=== PATIENT | female | born 1930 | race Caucasian/White ===

== ENCOUNTER → 2017-08-19 | Outpatient (CLI) | payer MEDICARE, BC ==
--- NOTE | 2017-08-20 12:18 | ECHOF ---
Referral Reason:R01.1 Cardiac murmur, unspecified MEASUREMENTS -------- HEIGHT: 127.0 cm WEIGHT: 61.7 kg BP: RVIDd: 2.7 cm (< 3.3) IVSd: 1.1 cm (0.6 - 1.1) LVIDd: 3.8 cm (3.9 - 5.3) LVPWd: 1.3 cm (0.6 - 1.1) EDV(Teich): 61 ml IVSs: 1.5 cm LVIDs: 2.6 cm LVPWs: 1.2 cm ESV(Teich): 24 ml EF(Teich): 61 % %FS: 32 % SV(Teich): 37 ml LA Diam: 3.1 cm (2.7 - 3.8) LALs A4C: 5.2 cm LAAs A4C: 17.6 cm LAESV A-L A4C: 51 ml LAESV MOD A4C: 46 ml LALs A2C: 4.1 cm LAAs A2C: 11.9 cm LAESV A-L A2C: 29 ml LAESV MOD A2C: 29 ml LAESV(A-L): 43 ml LAESV Index (A-L): 31.06 ml/m Ao Diam: 2.9 cm (2.0 - 3.7) AV Cusp: 1.7 cm (1.5 - 2.6) LA Diam: 3.2 cm (2.7 - 3.8) EPSS: 0.4 cm MV E Carlos Alberto: 0.80 m/s MV DecT: 228 ms MV Dec [place]: 3.5 m/s MV A Carlos Alberto: 1.07 m/s MV E/A Ratio: 0.75 E/E': 11.78 E': 0.07 m/s LVOT Vmax: 1.41 m/s LVOT maxP.91 mmHg LVOT Vmax: 1.38 m/s LVOT Vmean: 0.98 m/s LVOT maxP.58 mmHg LVOT meanP.21 mmHg LVOT Env.Ti: 312 ms LVOT VTI: 30.5 cm AV Vmax: 2.22 m/s AV maxP.83 mmHg AV Vmax: 2.19 m/s AV Vmean: 1.50 m/s AV maxP.31 mmHg AV meanP.15 mmHg AV Env.Ti: 272 ms AV VTI: 40.7 cm TR Vmax: 2.75 m/s TR maxP.27 mmHg RAP: 5.00 mmHg RVSP: 35.27 mmHg MV EF SLOPE: 52.33 mm/s (70 - 150) MV EXCURSION: 1.15 cm (> 18.000) FINDINGS -------- Sinus rhythm. This was a technically good study. The left ventricular size is normal. There is mild concentric left ventricular hypertrophy. Overa ll left ventricular systolic function is low-normal with, an EF between 50 - 55 %. The right ventricle is normal in size. The left atrial size is normal. LA is midly dilated 29-33ml/m2. The right atrial size is normal. There is mild aortic stenosis present. Peak/mean gradient across the Aortic Valve is 19.31mmHg / 10 .15mmHg. Mild mitral annular calcification present. Mild mitral regurgitation is present. Moderate tricuspid regurgitation present. There is mild pulmonary hypertension. The right ventric ular systolic pressure, as measured by Doppler, is 35.27mmHg. Trace/mild (physiologic) pulmonic regurgitation. The aortic root size is normal. There is no pericardial effusion. CONCLUSIONS -------- 1. The left ventricular size is normal. 2. There is mild concentric left ventricular hypertrophy. 3. Overall left ventricular systolic function is low-normal with, an EF between 50 - 55 %. 4. The left atrial size is normal. 5. LA is midly dilated 29-33ml/m2. 6. There is mild aortic stenosis present. 7. Peak/mean gradient across the Aortic Valve is 19.31mmHg / 10.15mmHg. 8. Mild mitral annular calcification present. 9. Mild mitral regurgitation is present. 10. Moderate tricuspid regurgitation present. 11. There is mild pulmonary hypertension. 12. The right ventricular systolic pressure, as measured by Doppler, is 35.27mmHg. 13. Trace/mild (physiologic) pulmonic regurgitation. 14. The aortic root size is normal. 15. There is no pericardial effusion. CAN PATCHER: Jenny Banegas RDCS
== END | disposition home or self-care (01) ==
LOC: RADECHMAIN 12:58
PROVIDERS: ATTEND Family Medicine
DX: I51.7 Cardiomegaly (principal)
CPT/HCPCS: 93306

== ENCOUNTER 2018-03-25 11:18 | Observation (INO) | payer MEDICARE, BC ==
[2018-03-25] MEDS ORDERED: ALBUTEROL NEBULIZED 2.5 MG/3 ML INHALATION STA (11:48)
[2018-03-25] MEDS ORDERED: methylPREDNISolone SOD SUCCI 125 MG/2 ML VIAL IV STA (11:48)
[2018-03-25] MEDS ORDERED: SODIUM CHLORIDE 0.9% 500 ML 500 ML IV STA (11:48)
[2018-03-25] MEDS ORDERED: IPRATROPIUM 0.5 MG/2.5 ML NEBU INHALATION STA (11:48)
--- NOTE | 2018-03-25 12:02 | ED ---
General Adult HPI - General Chief complaint: Shortness of Breath Stated complaint: Sent for breathing evaluation Time Seen by Provider: 03/25/18 11:20 Source: patient, RN notes reviewed Mode of arrival: ambulatory Limitations: no limitations - History of Present Illness Initial comments: This is an 88-year-old female who presents to the emergency department complaining of difficulty breathing. Patient states his been intermittent for months. 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 Patient states she's also coughing up some sputum. Patient denies any fever chills. Patient states she has been on steroids lately and is so she stopped taking steroids the symptoms worsened. Patient states her shortness of breath does appear to get worse with exertion but particularly worse at night. Patient denies any chest pain or palpitations. Patient denies any abdominal pain. Patient denies nausea vomiting or diarrhea. Patient denies any injury or trauma - Related Data Home Medications Medication Instructions Recorded Confirmed Albuterol Inhaler [Ventolin Hfa 1 - 2 puff INHALATION RT-Q6H PRN 03/25/18 Inhaler] Aspirin EC [Ecotrin Low Dose] 81 mg PO DAILY 03/25/18 03/25/18 Levothyroxine Sodium [Synthroid] 25 mcg PO MOTUWETHFRSA 03/25/18 03/25/18 Levothyroxine Sodium [Synthroid] 37.5 mcg PO RICHEY 03/25/18 03/25/18 Montelukast [Singulair] 10 mg PO HS 03/25/18 03/25/18 amLODIPine [Norvasc] 5 mg PO HS 03/25/18 03/25/18 Allergies Allergy/AdvReac Type Severity Reaction Status Date / Time tetracycline Allergy Unknown Verified 03/25/18 11:39 Review of Systems ROS Statement: Those systems with pertinent positive or pertinent negative responses have been documented in the HPI. ROS Other: All systems not noted in ROS Statement are negative. Past Medical History Past Medical History: Asthma History of Any Multi-Drug Resistant Organisms: None Reported Additional Past Surgical History / Comment(s): ovary and tube removed, right knee Past Psychological History: No Psychological Hx Reported Smoking Status: Never smoker Past Alcohol Use History: None Reported Past Drug Use History: None Reported General Exam - General Exam Comments Initial Comments: GENERAL: Patient is well-developed and well-nourished. Patient is nontoxic and well- hydrated and is in mild distress. ENT: Neck is soft and supple. No significant lymphadenopathy is noted. Oropharynx is clear. Moist mucous membranes. Neck has full range of motion without eliciting any pain. EYES: The sclera were anicteric and conjunctiva were pink and moist. Extraocular movements were intact and pupils were equal round and reactive to light. Eyelids were unremarkable. PULMONARY: Celina wheezing diffusely CARDIOVASCULAR: There is a regular rate and rhythm without any murmurs gallops or rubs. ABDOMEN: Soft and nontender with normal bowel sounds. No palpable organomegaly was noted. There is no palpable pulsatile mass. SKIN: Skin is clear with no lesions or rashes and otherwise unremarkable. NEUROLOGIC: Patient is alert and oriented x3. Cranial nerves II through XII are grossly intact. Motor and sensory are also intact. Normal speech, volume and content. Symmetrical smile. MUSCULOSKELETAL: Normal extremities with adequate strength and full range of motion. No lower extremity swelling or edema. No calf tenderness. LYMPHATICS: No significant lymphadenopathy is noted PSYCHIATRIC: Normal psychiatric evaluation. Limitations: no limitations Course Vital Signs 03/25/18 03/25/18 03/25/18 11:20 12:07 12:24 Temperature 98.3 F Pulse Rate 94 96 108 H Respiratory 18 Rate Blood Pressure 174/82 O2 Sat by Pulse 100 Oximetry 03/25/18 13:52 Temperature Pulse Rate 98 Respiratory 18 Rate Blood Pressure 177/85 O2 Sat by Pulse 97 Oximetry Medical Decision Making - Medical Decision Making EKG shows normal sinus rhythm at 95 bpm NH interval is 176 dresses 118 QT interval 382 QTC is 480. Patient's EKG shows a right bundle branch block there is no ST segment elevation or depression. Patient's d-dimer was mildly elevated I CAT scan the patient's chest did not show any PE and it showed no infiltrate. I went back and listened to the patient she was wheezing diffusely and stated she did not feel any better than she did previously. I spoke with [facility] hospitalist and they agreed to admit the patient admitted the patient I wrote admitting orders I continued steroids and albuterol treatments [id number]. - Lab Data Result diagrams: 03/25/18 12:05 03/25/18 12:05 Lab Results 11/01/18 11/01/18 11/01/18 Range/Units 12:05 12:05 12:05 WBC 5.8 (3.8-10.6) k/uL RBC 4.38 (3.80-5.40) m/uL Hgb 13.0 (11.4-16.0) gm/dL Hct 41.2 (34.0-46.0) % MCV 93.9 (80.0-100.0) fL MCH 29.6 (25.0-35.0) pg MCHC 31.5 (31.0-37.0) g/dL RDW 14.3 (11.5-15.5) % Plt Count 327 (150-450) k/uL Neutrophils % 57 % Lymphocytes % 23 % Monocytes % 4 % Eosinophils % 11 % Basophils % 0 % Neutrophils # 3.3 (1.3-7.7) k/uL Lymphocytes # 1.4 (1.0-4.8) k/uL Monocytes # 0.2 (0-1.0) k/uL Eosinophils # 0.7 (0-0.7) k/uL Basophils # 0.0 (0-0.2) k/uL PT (9.0-12.0) sec INR (<1.2) APTT (22.0-30.0) sec D-Dimer (<0.60) mg/L FEU Sodium 141 (137-145) mmol/L Potassium 4.2 (3.5-5.1) mmol/L Chloride 109 H (98-107) mmol/L Carbon Dioxide 23 (22-30) mmol/L Anion Gap 9 mmol/L BUN 13 (7-17) mg/dL Creatinine 0.67 (0.52-1.04) mg/dL Est GFR (CKD-EPI)AfAm >90 (>60 ml/min/1.73 sqM) Est GFR (CKD-EPI)NonAf 78 (>60 ml/min/1.73 sqM) Glucose 107 H (74-99) mg/dL Calcium 9.4 (8.4-10.2) mg/dL Magnesium 2.1 (1.6-2.3) mg/dL Total Bilirubin 0.4 (0.2-1.3) mg/dL AST 26 (14-36) U/L ALT 24 (9-52) U/L Alkaline Phosphatase 71 (38-126) U/L Total Creatine Kinase 49 (30-135) U/L CK-MB (CK-2) 1.0 (0.0-2.4) ng/mL CK-MB (CK-2) Rel Index 2.0 Troponin I <0.012 (0.000-0.034) ng/mL NT-Pro-B Natriuret Pep pg/mL Total Protein 7.0 (6.3-8.2) g/dL Albumin 4.1 (3.5-5.0) g/dL 03/25/18 03/25/18 Range/Units 12:05 12:05 WBC (3.8-10.6) k/uL RBC (3.80-5.40) m/uL Hgb (11.4-16.0) gm/dL Hct (34.0-46.0) % MCV (80.0-100.0) fL MCH (25.0-35.0) pg MCHC (31.0-37.0) g/dL RDW (11.5-15.5) % Plt Count (150-450) k/uL Neutrophils % % Lymphocytes % % Monocytes % % Eosinophils % % Basophils % % Neutrophils # (1.3-7.7) k/uL Lymphocytes # (1.0-4.8) k/uL Monocytes # (0-1.0) k/uL Eosinophils # (0-0.7) k/uL Basophils # (0-0.2) k/uL PT 9.4 (9.0-12.0) sec INR 0.9 (<1.2) APTT 21.1 L (22.0-30.0) sec D-Dimer 0.75 H (<0.60) mg/L FEU Sodium (137-145) mmol/L Potassium (3.5-5.1) mmol/L Chloride (98-107) mmol/L Carbon Dioxide (22-30) mmol/L Anion Gap mmol/L BUN (7-17) mg/dL Creatinine (0.52-1.04) mg/dL Est GFR (CKD-EPI)AfAm (>60 ml/min/1.73 sqM) Est GFR (CKD-EPI)NonAf (>60 ml/min/1.73 sqM) Glucose (74-99) mg/dL Calcium (8.4-10.2) mg/dL Magnesium (1.6-2.3) mg/dL Total Bilirubin (0.2-1.3) mg/dL AST (14-36) U/L ALT (9-52) U/L Alkaline Phosphatase (38-126) U/L Total Creatine Kinase (30-135) U/L CK-MB (CK-2) (0.0-2.4) ng/mL CK-MB (CK-2) Rel Index Troponin I (0.000-0.034) ng/mL NT-Pro-B Natriuret Pep 227 pg/mL Total Protein (6.3-8.2) g/dL Albumin (3.5-5.0) g/dL Disposition Clinical Impression: Asthma with status asthmaticus Referrals: Kwabena Pedraza DO [Primary Care Provider] - 1-2 days Time of Disposition: 15:17
[2018-03-25 12:41] LABS: Basophils % (A) 0 %; Eosinophils # (A) 0.7 k/uL (0-0.7); Eosinophils % (A) 11 %; HCT 41.2 % (34.0-46.0); Lymphocytes # (A) 1.4 k/uL (1.0-4.8); Lymphocytes % (A) 23 %; MCH 29.6 pg (25.0-35.0); MCHC 31.5 g/dL (31.0-37.0); MCV 93.9 fL (80.0-100.0); Mean Platelet Volume 6.8; Monocytes # (A) 0.2 k/uL (0-1.0); Monocytes % (A) 4 %; Neutrophils # (A) 3.3 k/uL (1.3-7.7); Neutrophils % (A) 57 %; Platelet Count 327 k/uL (150-450); RBC 4.38 m/uL (3.80-5.40); RDW 14.3 % (11.5-15.5); WBC 5.8 k/uL (3.8-10.6)
[2018-03-25 12:49] LABS: ALT 24 U/L (9-52); AST 26 U/L (14-36); Albumin 4.1 g/dL (3.5-5.0); Alkaline Phosphatase 71 U/L (38-126); Anion Gap 9 mmol/L; Blood Urea Nitrogen 13 mg/dL (7-17); Calcium 9.4 mg/dL (8.4-10.2); Carbon Dioxide 23 mmol/L (22-30); Chloride 109 mmol/L (98-107); Glucose 107 mg/dL (74-99); Magnesium 2.1 mg/dL (1.6-2.3); Potassium 4.2 mmol/L (3.5-5.1); Sodium 141 mmol/L (137-145); Total Bilirubin 0.4 mg/dL (0.2-1.3)
[2018-03-25 13:09] LABS: Creatine Kinase 49 U/L (30-135); INR 0.9 (<1.2); Prothrombin Time 9.4 sec (9.0-12.0)
[2018-03-25 13:13] LABS: D-Dimer 0.75 mg/L FEU (<0.60); Partial Thromboplastin Time 21.1 sec (22.0-30.0)
--- NOTE | 2018-03-25 13:20 | XR ---
EXAMINATION TYPE: XR chest 2V DATE OF EXAM: 03/25/2018 COMPARISON: NONE TECHNIQUE: PA and lateral views submitted. HISTORY: Difficulty in breathing FINDINGS: Left basilar atelectasis or infiltrate. There is prominence the right paratracheal stripe. Hyperinfla tion suggests COPD. Apical pleural thickening. No overt failure. Hypertrophic and degenerative change of the spine. IMPRESSION: 1. Left basilar atelectasis or infiltrate. There is increased density along the right paratracheal st ripe for which CT of the chest is recommended.
[2018-03-25 13:22] LABS: Troponin I <0.012 ng/mL (0.000-0.034)
--- NOTE | 2018-03-25 15:09 | CT ---
CT CHEST FOR PULMONARY EMBOLISM. EXAMINATION TYPE: CT chest angio for PE DATE OF EXAM: 03/25/2018 INDICATION: Shortness of breath and wheezing for [address] DLP: 205.5 mGycm, Automated exposure control for dose reduction was used. CONTRAST: Patient injected with 100 mL of Isovue 370. COMPARISON: None TECHNIQUE: CT of the chest is performed on a spiral scan at 2 mm thick sections. Study is performed with intravenous contrast timed for evaluation for pulmonary embolism. This will limit additional po rtions of the evaluation. 3-D MIP images reconstructed by the technologist are reviewed on the compu ter in the coronal and sagittal planes. FINDINGS: No persistent filling defects are evident to suggest an acute pulmonary embolism. No mediastinal or hilar adenopathy enlarged by CT criteria is evident. The ascending aorta diameter at the level of the main pulmonary artery is 3.4 cm. The main pulmonary artery diameter at the bifur cation is 2.3 cm. Lung windows are clear. There is a 4.3 cm cyst on the superior medial right kidney. IMPRESSIONS: 1. No acute pulmonary embolism.
[2018-03-25] MEDS ORDERED: IPRATROPIUM-ALBUTEROL 3 ML NEB INHALATION STA (15:18)
[2018-03-25] MEDS: IPRATROPIUM-ALBUTEROL 3 ML NEB INHALATION PRN (20:54)
--- NOTE | 2018-03-25 21:23 | P.HPIM ---
History of Present Illness This is a pleasant 88 years old female with past medical history of asthma, hypertension and hypothyroidism. Presents because of dyspnea suspicious for acute asthma attack, pt has h/o asthma since age of 30s, she gets asthma attacks about once a year and that she is allergic to elm tree and dust mites. pt usually goes to her pcp who prescribed her prednisone for few days where she will get better. how ever this is the third attack in 2-3 months, the first attack she thinks was on november , followed by a second one in December, she just finished her prednisone taper about 2 weeks ago, then one week ago she start to develop dyspnea again. Her dyspnea is associated with cough and white/clear phlegm. however there is no chest pain, no abdominal pain . no recent h/o common cold . In the emergency room patient was afebrile but tachycardic and hypertensive. Oxygen saturation 97% on 2 L oxygen via NC. No leukocytosis and aggressive CBC and BMP were unremarkable. CTPA was done for elevated d-dimer showing no pulmonary embolism, no mediastinal lymphadenopathy. And 4.3 cm on the right kidney. Chest x-ray showing left basilar atelectasis or infiltrate Review of Systems CONSTITUTIONAL: No fever, no malaise, no fatigue. HEENT: No recent visual problems or hearing problems. Denied any sore throat. CARDIOVASCULAR: No orthopnea, PND, no palpitations, no syncope. PULMONARY: No shortness of breath, no cough, no hemoptysis. GASTROINTESTINAL: No diarrhea, no nausea, no vomiting, no abdominal pain. Normoactive bowel sounds. NEUROLOGICAL: No headaches, no weakness, no numbness. HEMATOLOGICAL: Denies any bleeding or petechiae. GENITOURINARY: Denies any burning micturition, frequency, or urgency. MUSCULOSKELETAL/RHEUMATOLOGICAL: Denies any joint pain, swelling, or any muscle pain. ENDOCRINE: Denies any polyuria or polydipsia. Past Medical History Past Medical History: Asthma History of Any Multi-Drug Resistant Organisms: None Reported Additional Past Surgical History / Comment(s): ovary and tube removed, right knee Past Psychological History: No Psychological Hx Reported Smoking Status: Never smoker Past Alcohol Use History: None Reported Past Drug Use History: None Reported Medications and Allergies Home Medications Medication Instructions Recorded Confirmed Type Albuterol Inhaler [Ventolin Hfa 1 - 2 puff INHALATION RT-Q6H PRN 03/25/18 History Inhaler] Aspirin EC [Ecotrin Low Dose] 81 mg PO DAILY 03/25/18 03/25/18 History Levothyroxine Sodium [Synthroid] 25 mcg PO MOTUWETHFRSA 03/25/18 03/25/18 History Levothyroxine Sodium [Synthroid] 37.5 mcg PO RICHEY 03/25/18 03/25/18 History Montelukast [Singulair] 10 mg PO HS 03/25/18 03/25/18 History amLODIPine [Norvasc] 5 mg PO HS 03/25/18 03/25/18 History Allergies Allergy/AdvReac Type Severity Reaction Status Date / Time tetracycline Allergy Unknown Verified 03/25/18 11:39 Physical Exam Vitals: Vital Signs Temp Pulse Resp BP Pulse Ox 03/25/18 15:49 106 H 03/25/18 15:41 106 H 03/25/18 13:52 98 18 177/85 97 03/25/18 12:24 108 H 03/25/18 12:07 96 03/25/18 11:20 98.3 F 94 18 174/82 100 Intake and Output 03/25/18 03/25/18 03/25/18 06:59 14:59 22:59 Other: Weight 62.142 kg GENERAL: The patient is alert and oriented x3, not in any acute distress. Well developed, well nourished. HEENT: Pupils are round and equally reacting to light. EOMI. No scleral icterus. No conjunctival pallor. Normocephalic, atraumatic. No pharyngeal erythema. No thyromegaly. CARDIOVASCULAR: S1 and S2 present. No murmurs, rubs, or gallops. PULMONARY: Chest is clear to auscultation, no crackles. bilateral wheezing and extended expiratory phase. ABDOMEN: Soft, nontender, nondistended, normoactive bowel sounds. No palpable organomegaly. MUSCULOSKELETAL: No joint swelling or deformity. EXTREMITIES: No cyanosis, clubbing, or pedal edema. NEUROLOGICAL: Gross neurological examination did not reveal any focal deficits. SKIN: No rashes. Results CBC & Chem 7: 03/25/18 12:05 03/25/18 12:05 Labs: Abnormal Lab Results - Last 24 Hours (Table) 11/01/18 11/01/18 Range/Units 12:05 12:05 APTT 21.1 L (22.0-30.0) sec D-Dimer 0.75 H (<0.60) mg/L FEU Chloride 109 H (98-107) mmol/L Glucose 107 H (74-99) mg/dL Assessment and Plan Assessment: Acute asthma exacerbation Essential hypertension Hypothyroidism right renal cyst Plan: This is a pleasant 88 years old female who presents because of asthma. We'll continue with a breathing treatment, steroids and oxygen. we will call pulmonary consult. Labs and medication were resumed. Continue same treatment. Continue with symptomatic treatment. Resume home medication. Monitor lytes and vitals. DVT and GI prophylaxis. Further recommendationsof the clinical course of the patient DVT prophylaxis: Subcutaneous heparin GI Prophylaxis: Pepcid PT/OT: Pending Prognosis is guarded
[2018-03-25 22:47] VITALS: BMI 28.3
[2018-03-25] MEDS: methylPREDNISolone SOD SUCCI 125 MG/2 ML VIAL IV SCH ×3 (23:07→23:34)
[2018-03-25] MEDS: HEPARIN SODIUM,PORCINE 5,000 UNIT/ML 1 ML VIAL SQ SCH (23:07)
[2018-03-25] MEDS: FAMOTIDINE 20 MG/2 ML VIAL IV SCH (23:07)
[2018-03-26] MEDS: amLODIPine 5 MG TAB PO SCH ×2 (00:29→19:56)
[2018-03-26] MEDS: MONTELUKAST 10 MG TAB PO SCH ×2 (00:29→19:56)
[2018-03-26] MEDS: IPRATROPIUM-ALBUTEROL 3 ML NEB INHALATION PRN ×2 (03:12→07:38)
[2018-03-26] MEDS: methylPREDNISolone SOD SUCCI 125 MG/2 ML VIAL IV SCH ×3 (06:16→17:40)
[2018-03-26] MEDS: LEVOTHYROXINE 25 MCG TAB PO SCH (06:17)
[2018-03-26 07:44] LABS: Glucose,Whole Blood 152 mg/dL (75-99)
[2018-03-26] MEDS: INSULIN ASPART 100 UNIT/ML 1 ML 10 ML VIAL SQ SCH ×4 (08:46→21:07)
[2018-03-26] MEDS: HEPARIN SODIUM,PORCINE 5,000 UNIT/ML 1 ML VIAL SQ SCH ×2 (08:47→19:56)
[2018-03-26] MEDS: ASPIRIN 81 MG PO SCH (08:48)
[2018-03-26] MEDS: FAMOTIDINE 20 MG/2 ML VIAL IV SCH (08:48)
[2018-03-26] MEDS: IPRATROPIUM-ALBUTEROL 3 ML NEB INHALATION SCH ×3 (11:27→19:28)
[2018-03-26 12:28] LABS: Glucose,Whole Blood 141 mg/dL (75-99)
--- NOTE | 2018-03-26 13:40 | P.CNPUL ---
History of Present Illness Consult date: 03/26/18 Requesting physician: Jose Diego Reason for consult: dyspnea, cough Chief complaint: Cough, chest congestion, wheezing, shortness of breath History of present illness: This is a 88-year-old patient of Dr. Dash, also follows with retirement specialist from [facility] Dr. Ke Trimble for her history of chronic bronchial asthma, who presented for evaluation of difficulty breathing, persistent cough, chest congestion, wheezing to the emergency department on 05/2017. Patient states she has had recurrent exacerbations of her bronchial asthma since November of this year, for which she required treatment with steroids. She states she used to be on a maintenance inhaler for her asthma, does not remember the name, she developed voice hoarseness, and in July 2017 her retirement specialist discontinued the inhaler and her voice quality recovered. Her only inhaler at this time is Ventolin which she has been using every 4 hours for persistent wheezing. She is on Singulair. She had a an exacerbation of her asthma in December, in January, and February, recently completed a course of prednisone taper 2 weeks ago, and her symptoms worsened. She is having nighttime symptoms every night for the past 2-3 weeks. She states in the past he had some ALLERGY testing by Dr. Worrell, and she was found to be ALLERGIC to trees, and dust mites. Lifetime nonsmoker. She is not exactly sure of her asthma triggers. Other medical history includes hypertension, heart murmur, hypothyroidism. Patient resides in [facility], and she would like to get established with a retirement specialist closer to her place of residence. She denied any fever or chills, her cough is productive with thick white sputum. No hemoptysis, no chest wall tenderness. Not on oxygen at baseline. She is not sure of her baseline pulmonary function. She was never hospitalized or intubated for her asthma. Chest x-ray was completed and showed left basilar atelectasis, and hyperinflation. Lab work was negative for any leukocytosis, d-dimer was mildly elevated at 0.75, electrolytes and renal profile were unremarkable, LFTs were within normal limits , troponin was negative 1, proBNP was within normal limits at 227, influenza screen was negative. CT angios of the chest was completed and showed no evidence of pulmonary embolism, no mediastinal or hilar adenopathy, clear lung windows. EKG showed normal sinus rhythm with a right bundle branch block pattern. Patient was started on nebulized bronchodilators, IV steroids, she is feeling better today, we are seeing this patient in consultation for exacerbation of severe persistent bronchial asthma Review of Systems All systems: negative Constitutional: Denies chills, Denies fever Eyes: denies blurred vision, denies pain Ears, nose, mouth and throat: Denies headache, Denies sore throat Cardiovascular: Denies chest pain, Denies shortness of breath Respiratory: Reports congestion, Reports cough with sputum, Reports dyspnea, Reports wheezing, Denies cough Gastrointestinal: Denies abdominal pain, Denies diarrhea, Denies nausea, Denies vomiting Genitourinary: Denies dysuria, Denies hematuria Musculoskeletal: Denies myalgias Integumentary: Denies pruritus, Denies rash Neurological: Denies numbness, Denies weakness Psychiatric: Denies anxiety, Denies depression Endocrine: Denies fatigue, Denies weight change Past Medical History Past Medical History: Asthma History of Any Multi-Drug Resistant Organisms: None Reported Additional Past Surgical History / Comment(s): ovary and tube removed, right knee Past Psychological History: No Psychological Hx Reported Smoking Status: Never smoker Past Alcohol Use History: None Reported Past Drug Use History: None Reported Medications and Allergies Home Medications Medication Instructions Recorded Confirmed Type Albuterol Inhaler [Ventolin Hfa 1 - 2 puff INHALATION RT-Q6H PRN 03/25/18 History Inhaler] Aspirin EC [Ecotrin Low Dose] 81 mg PO DAILY 03/25/18 03/25/18 History Levothyroxine Sodium [Synthroid] 25 mcg PO MOTUWETHFRSA 03/25/18 03/25/18 History Levothyroxine Sodium [Synthroid] 37.5 mcg PO RICHEY 03/25/18 03/25/18 History Montelukast [Singulair] 10 mg PO HS 03/25/18 03/25/18 History amLODIPine [Norvasc] 5 mg PO HS 03/25/18 03/25/18 History Allergies Allergy/AdvReac Type Severity Reaction Status Date / Time tetracycline Allergy Unknown Verified 03/25/18 11:39 Physical Exam Vitals: Vital Signs Temp Pulse Pulse Resp BP BP Pulse Ox 03/26/18 11:37 102 H 03/26/18 11:27 104 H 03/26/18 08:00 17 03/26/18 07:55 102 H 03/26/18 07:40 96 03/26/18 06:01 98.1 F 98 17 148/80 93 L 03/26/18 03:23 100 03/26/18 03:13 104 H 03/26/18 00:19 105 H 134/71 03/25/18 22:59 98.1 F 121 H 18 152/80 94 L 03/25/18 22:01 98.2 F 96 18 137/87 98 03/25/18 21:17 98.5 F 108 H 20 139/70 95 03/25/18 21:07 100 03/25/18 20:54 100 03/25/18 17:00 98.2 F 100 18 136/78 98 03/25/18 15:49 106 H 03/25/18 15:41 106 H 03/25/18 13:52 98 18 177/85 97 Intake and Output 03/25/18 03/26/18 03/26/18 22:59 06:59 14:59 Other: Voiding Method Toilet # Voids 1 1 Weight 61.5 kg GENERAL EXAM: Alert, pleasant, 88-year-old comfortable in no apparent distress. HEAD: Normocephalic/atraumatic. EYES: Normal reaction of pupils, equal size. Conjunctiva pink, sclera white. NOSE: Clear with pink turbinates. THROAT: No erythema or exudates. NECK: No masses, no JVD, no thyroid enlargement, no adenopathy. CHEST: No chest wall deformity. Symmetrical expansion. LUNGS: Equal air entry diffuse wheezes, and prolongation of the expiratory phase CVS: Regular rate and rhythm, normal S1 and S2, no gallops, no rubs, there is soft systolic murmur at the left midclavicular line ABDOMEN: Soft, nontender. No hepatosplenomegaly, normal bowel sounds, no guarding or rigidity. EXTREMITIES: No clubbing, no edema, no cyanosis, 2+ pulses and upper and lower extremities. MUSCULOSKELETAL: Muscle strength and tone normal. SPINE: No scoliosis or deformity SKIN: No rashes CENTRAL NERVOUS SYSTEM: Alert and oriented -3. No focal deficits, tone is normal in all 4 extremities. PSYCHIATRIC: Alert and oriented -3. Appropriate affect. Intact judgment and insight. Results - Laboratory Findings CBC and BMP: 03/25/18 12:05 03/25/18 12:05 PT/INR, D-dimer PT 9.4 sec (9.0-12.0) 03/25/18 12:05 INR 0.9 (<1.2) 03/25/18 12:05 D-Dimer 0.75 mg/L FEU (<0.60) H 03/25/18 12:05 Abnormal lab findings: Abnormal Labs 03/25/18 03/25/18 03/26/18 12:05 12:05 07:42 APTT 21.1 L D-Dimer 0.75 H Chloride 109 H Glucose 107 H POC Glucose (mg/dL) 152 H 03/26/18 12:16 APTT D-Dimer Chloride Glucose POC Glucose (mg/dL) 141 H - Diagnostic Findings Chest x-ray: report reviewed, image reviewed CT scan - chest: report reviewed, image reviewed Additional studies: EKG reviewed Assessment and Plan Plan: Assessment: #1. Acute exacerbation of severe persistent bronchial asthma, patient has had recurrent exacerbations in November, December, January and February #2. Mildly elevated d-dimer, CT angios the chest was negative for any evidence of pulmonary embolism and no evidence of acute pulmonary process #3. Essential hypertension #4. Hypothyroidism #5. Heart murmur #6. Lifetime nonsmoker Plan: We'll continue the IV steroids, Singulair, nebulized bronchodilators, will add Pulmicort and Perforomist, continue GI and DVT prophylaxis. Chest x-ray, CT angiogram of the chest was reviewed with Dr. Alvarez, there is no evidence of pulmonary embolism, no evidence of acute pulmonary process. We'll continue to follow. I performed a history & physical examination of the patient and discussed their management with my nurse practitioner, Sharee Rivas. I reviewed the nurse practitioner's note and agree with the documented findings and plan of care. Lung sounds are positive for diffuse wheezes throughout the lung dhillon. The findings and the impression was discussed with the patient. I attest to the documentation by the nurse practitioner.
[2018-03-26 15:39] LABS: Hemoglobin A1C 5.7 % (4.0-6.0)
[2018-03-26 17:25] LABS: Glucose,Whole Blood 159 mg/dL (75-99)
--- NOTE | 2018-03-26 18:24 | P.PN ---
Subjective Progress Note Date: 03/26/18 Progress note being dictated for Dr. Jensen. Interval history:This is a pleasant 88 years old female with past medical history of asthma, hypertension and hypothyroidism. Presents because of dyspnea suspicious for acute asthma attack, pt has h/o asthma since age of 30s, she gets asthma attacks about once a year and that she is allergic to elm tree and dust mites. pt usually goes to her pcp who prescribed her prednisone for few days where she will get better. how ever this is the third attack in 2-3 months, the first attack she thinks was on november , followed by a second one in December, she just finished her prednisone taper about 2 weeks ago, then one week ago she start to develop dyspnea again. Her dyspnea is associated with cough and white/clear phlegm. however there is no chest pain, no abdominal pain . no recent h/o common cold . In the emergency room patient was afebrile but tachycardic and hypertensive. Oxygen saturation 97% on 2 L oxygen via NC. No leukocytosis and aggressive CBC and BMP were unremarkable. CTPA was done for elevated d-dimer showing no pulmonary embolism, no mediastinal lymphadenopathy. And 4.3 cm on the right kidney. Chest x-ray showing left basilar atelectasis or infiltrate Review of Systems CONSTITUTIONAL: No fever, no malaise, no fatigue. HEENT: No recent visual problems or hearing problems. Denied any sore throat. CARDIOVASCULAR: No orthopnea, PND, no palpitations, no syncope. PULMONARY: No shortness of breath, no cough, no hemoptysis. GASTROINTESTINAL: No diarrhea, no nausea, no vomiting, no abdominal pain. Normoactive bowel sounds. NEUROLOGICAL: No headaches, no weakness, no numbness. HEMATOLOGICAL: Denies any bleeding or petechiae. GENITOURINARY: Denies any burning micturition, frequency, or urgency. MUSCULOSKELETAL/RHEUMATOLOGICAL: Denies any joint pain, swelling, or any muscle pain. ENDOCRINE: Denies any polyuria or polydipsia. 03/26/18 evaluated by pulmonary. Maintained on nebulized bronchodilators, IV steroids, with breathing slowly improved. Reports nonproductive cough. Blood sugars controlled. Denies chest pain, palpitations. Good diet intake, no nausea , no vomiting. Afebrile, mildly tachycardic. Objective - Vital Signs Vital signs: Vital Signs Temp 98.3 F 03/26/18 15:00 Pulse 93 03/26/18 15:52 Resp 22 03/26/18 16:00 BP 167/83 03/26/18 15:00 Pulse Ox 93 L 03/26/18 15:00 Intake & Output 03/25/18 03/26/18 03/26/18 18:59 06:59 18:59 Weight 62.142 kg 61.5 kg Other: Voiding Method Toilet # Voids 1 2 - Exam GENERAL: The patient is alert and oriented x3, not in any acute distress. Well developed, well nourished. HEENT: Pupils are round and equally reacting to light. EOMI. No scleral icterus. No conjunctival pallor. Normocephalic, atraumatic. No pharyngeal erythema. No thyromegaly. CARDIOVASCULAR: S1 and S2 present. No murmurs, rubs, or gallops. Mild tachycardia PULMONARY: Chest is clear to auscultation, no crackles. bilateral wheezing and extended expiratory phase. ABDOMEN: Soft, nontender, nondistended, normoactive bowel sounds. No palpable organomegaly. MUSCULOSKELETAL: No joint swelling or deformity. EXTREMITIES: No cyanosis, clubbing, or pedal edema. NEUROLOGICAL: Gross neurological examination did not reveal any focal deficits. SKIN: No rashes. - Labs CBC & Chem 7: 03/25/18 12:05 03/25/18 12:05 Labs: Abnormal Lab Results - Last 24 Hours (Table) 03/26/18 03/26/18 03/26/18 Range/Units 07:42 12:16 17:23 POC Glucose (mg/dL) 152 H 141 H 159 H (75-99) mg/dL Microbiology - Last 24 Hours (Table) 03/25/18 12:05 Blood Culture - Preliminary Blood No Growth after 24 hours Assessment and Plan Assessment: Acute persistent asthma exacerbation, recurrent with last exacerbation in January Essential hypertension Hypothyroidism right renal cyst Pulmonary embolism ruled out Plan: Continue on current medication regime ,monitoring and symptomatic treatment. Maintain nebulized bronchodilators, systemic steroids, antibiotics. Pulmicort, Perforomist added to med regime. Increase ambulation as tolerated. The impression and plan of care has been dictated as directed. : I performed a history and examination of this patient, discussed the same with the dictator. I agree with the dictator's note ,documented as a scribe. Any additional findings or plans will be noted.
[2018-03-26] MEDS: BUDESONIDE 1 MG/2 ML NEBU INHALATION SCH (19:28)
[2018-03-26] MEDS: FORMOTEROL FUMARATE 20 MCG/2 ML NEBU INHALATION SCH (19:28)
[2018-03-26 20:02] LABS: Glucose,Whole Blood 196 mg/dL (75-99)
[2018-03-27] MEDS: methylPREDNISolone SOD SUCCI 125 MG/2 ML VIAL IV SCH ×3 (00:09→12:30)
[2018-03-27] MEDS: IPRATROPIUM-ALBUTEROL 3 ML NEB INHALATION SCH ×4 (04:04→12:07)
[2018-03-27] MEDS: LEVOTHYROXINE 25 MCG TAB PO SCH (06:22)
[2018-03-27 07:36] LABS: Glucose,Whole Blood 157 mg/dL (75-99)
[2018-03-27 07:39] VITALS: BP 153/86; RESP 17; TEMP 98.6
[2018-03-27] MEDS: HEPARIN SODIUM,PORCINE 5,000 UNIT/ML 1 ML VIAL SQ SCH (07:57)
[2018-03-27] MEDS: ASPIRIN 81 MG PO SCH (07:57)
[2018-03-27] MEDS: INSULIN ASPART 100 UNIT/ML 1 ML 10 ML VIAL SQ SCH ×2 (07:58→12:31)
[2018-03-27] MEDS: FORMOTEROL FUMARATE 20 MCG/2 ML NEBU INHALATION SCH (08:26)
[2018-03-27] MEDS: BUDESONIDE 1 MG/2 ML NEBU INHALATION SCH (08:26)
[2018-03-27] MEDS ORDERED: FAMOTIDINE 20 MG TAB PO SCH (09:00)
[2018-03-27 09:03] LABS: Basophils % (A) 0 %; Eosinophils # (A) 0.1 k/uL (0-0.7); Eosinophils % (A) 0 %; HCT 40.8 % (34.0-46.0); HGB 12.8 gm/dL (11.4-16.0); Hypochromasia Slight; Lymphocytes # (A) 0.5 k/uL (1.0-4.8); Lymphocytes % (A) 4 %; MCH 29.8 pg (25.0-35.0); MCHC 31.4 g/dL (31.0-37.0); MCV 94.9 fL (80.0-100.0); Mean Platelet Volume 6.9; Monocytes # (A) 0.2 k/uL (0-1.0); Monocytes % (A) 2 %; Neutrophils # (A) 12.1 k/uL (1.3-7.7); Neutrophils % (A) 94 %; Platelet Count 349 k/uL (150-450); RDW 14.5 % (11.5-15.5); WBC 12.9 k/uL (3.8-10.6)
[2018-03-27 09:16] LABS: Calcium 10.1 mg/dL (8.4-10.2); Potassium 3.7 mmol/L (3.5-5.1)
[2018-03-27 11:56] LABS: Glucose,Whole Blood 153 mg/dL (75-99)
[2018-03-27 12:10] VITALS: PULSE 100
--- NOTE | 2018-03-27 12:45 | P.PN ---
Subjective Progress Note Date: 03/27/18 Principal diagnosis: Acute exacerbation of moderate persistent asthma This is a 88-year-old patient of Dr. Dash, also follows with international specialist from [facility] Dr. Ke Trimble for her history of chronic bronchial asthma, who presented for evaluation of difficulty breathing, persistent cough, chest congestion, wheezing to the emergency department on 05/2017. Patient states she has had recurrent exacerbations of her bronchial asthma since November of this year, for which she required treatment with steroids. She states she used to be on a maintenance inhaler for her asthma, does not remember the name, she developed voice hoarseness, and in July 2017 her international specialist discontinued the inhaler and her voice quality recovered. Her only inhaler at this time is Ventolin which she has been using every 4 hours for persistent wheezing. She is on Singulair. She had a an exacerbation of her asthma in December, in January, and February, recently completed a course of prednisone taper 2 weeks ago, and her symptoms worsened. She is having nighttime symptoms every night for the past 2-3 weeks. She states in the past he had some ALLERGY testing by Dr. Worrell, and she was found to be ALLERGIC to trees, and dust mites. Lifetime nonsmoker. She is not exactly sure of her asthma triggers. Other medical history includes hypertension, heart murmur, hypothyroidism. Patient resides in [facility], and she would like to get established with a international specialist closer to her place of residence. She denied any fever or chills, her cough is productive with thick white sputum. No hemoptysis, no chest wall tenderness. Not on oxygen at baseline. She is not sure of her baseline pulmonary function. She was never hospitalized or intubated for her asthma. Chest x-ray was completed and showed left basilar atelectasis, and hyperinflation. Lab work was negative for any leukocytosis, d-dimer was mildly elevated at 0.75, electrolytes and renal profile were unremarkable, LFTs were within normal limits , troponin was negative 1, proBNP was within normal limits at 227, influenza screen was negative. CT angios of the chest was completed and showed no evidence of pulmonary embolism, no mediastinal or hilar adenopathy, clear lung windows. EKG showed normal sinus rhythm with a right bundle branch block pattern. Patient was started on nebulized bronchodilators, IV steroids, she is feeling better today, we are seeing this patient in consultation for exacerbation of severe persistent bronchial asthma The patient is seen today 03/27/2018 in follow-up on the regular medical floor. She is awake and alert in no acute distress. She is breathing a bit better today than yesterday. Still not back to her baseline. Still dyspneic on minimal exertion. Still somewhat bronchospastic and wheezy. She is maintaining good O2 saturations in the mid 90s on room air. She's been afebrile. Tachycardic. Blood culture reveals no growth. White count 12.9. Hemoglobin 12.8. Creatinine 0.80. She is been maintained on DuoNeb inhalations , Pulmicort and Perforomist inhalations, Singulair, IV Solu-Medrol. Objective - Vital Signs Vital signs: Vital Signs Temp 98.6 F 03/27/18 07:00 Pulse 100 03/27/18 12:22 Resp 17 03/27/18 08:00 BP 153/86 03/27/18 07:00 Pulse Ox 95 03/27/18 07:00 Intake & Output 03/26/18 03/27/18 03/27/18 18:59 06:59 18:59 Intake Total 500 Balance 500 Intake: Oral 500 Other: Voiding Method Toilet Toilet # Voids 2 1 - Exam GENERAL EXAM: Alert, active, comfortable in no apparent distress. HEAD: Normocephalic. EYES: Normal reaction of pupils, equal size. NOSE: Clear with pink turbinates. THROAT: No erythema or exudates. NECK: No masses, no JVD. CHEST: No chest wall deformity. LUNGS: Equal air entry with bilateral end expiratory wheeze. Diminished. CVS: S1 and S2 normal with no audible murmur, regular rhythm. Tachycardic. ABDOMEN: No hepatosplenomegaly, normal bowel sounds, no guarding or rigidity. SPINE: No scoliosis or deformity SKIN: No rashes CENTRAL NERVOUS SYSTEM: No focal deficits, tone is normal in all 4 extremities. EXTREMITIES: There is no peripheral edema. No clubbing, no cyanosis. Peripheral pulses are intact. - Labs CBC & Chem 7: 03/27/18 08:10 03/27/18 08:10 Labs: Abnormal Lab Results - Last 24 Hours (Table) 03/26/18 03/26/18 03/27/18 Range/Units 17:23 19:58 07:11 WBC (3.8-10.6) k/uL Neutrophils # (1.3-7.7) k/uL Lymphocytes # (1.0-4.8) k/uL BUN (7-17) mg/dL Glucose (74-99) mg/dL POC Glucose (mg/dL) 159 H 196 H 157 H (75-99) mg/dL 03/27/18 03/27/18 03/27/18 Range/Units 08:10 08:10 11:54 WBC 12.9 H (3.8-10.6) k/uL Neutrophils # 12.1 H (1.3-7.7) k/uL Lymphocytes # 0.5 L (1.0-4.8) k/uL BUN 23 H (7-17) mg/dL Glucose 164 H (74-99) mg/dL POC Glucose (mg/dL) 153 H (75-99) mg/dL Microbiology - Last 24 Hours (Table) 03/25/18 12:05 Blood Culture - Preliminary Blood No Growth after 24 hours Assessment and Plan Assessment: Assessment: #1. Acute exacerbation of severe persistent bronchial asthma, patient has had recurrent exacerbations in November, December, January and February #2. Mildly elevated d-dimer, CT angios the chest was negative for any evidence of pulmonary embolism and no evidence of acute pulmonary process #3. Essential hypertension #4. Hypothyroidism #5. Heart murmur #6. Lifetime nonsmoker Plan: The patient was seen and evaluated by Dr. Ortega. She is improved but not quite back to her baseline. We'll continue with her current treatment plan. She plans to follow up with our group in the outpatient setting as this is closer to her home. We'll continue to follow. I, the cosigning physician, performed a history & physical examination of the patient. Lungs sounds lateral end expiratory wheeze. Diminished. Maintaining good O2 saturations in the 90s on room air. I discussed the assessment and plan of care with my nurse practitioner, Lara Meng. I attest to the above note as dictated by her.
--- NOTE | 2018-03-27 13:33 | P.DS ---
Providers Date of admission: 03/25/18 15:17 Attending physician: Jose Diego MD Consults: 03/25/18 15:18 Consult Physician Routine Consulting Provider: Germaine Ortega Consult Reason/Comments: Asthma exacerbation Do you want consulting provider notified?: Yes Primary care physician: [facility] Course: patient is a pleasant 88-year-old female admitted seconded asthma exacerbation clinically doing well saturating well and ambulation. If cleared by pulmonary patient will be discharged on weaning dose of steroids. Still has mild expiratory wheeze on exam. PHYSICAL EXAMINATION: GENERAL: The patient is alert and oriented x3, not in any acute distress. Well developed, well nourished. HEENT: Pupils are round and equally reacting to light. EOMI. No scleral icterus. No conjunctival pallor. Normocephalic, atraumatic. No pharyngeal erythema. No thyromegaly. CARDIOVASCULAR: S1 and S2 present. No murmurs, rubs, or gallops. PULMONARY: Fairly good air entry into bilateral lung dhillon minimal expiratory wheezing was appreciated ABDOMEN: Soft, nontender, nondistended, normoactive bowel sounds. No palpable organomegaly. MUSCULOSKELETAL: No joint swelling or deformity. EXTREMITIES: No cyanosis, clubbing, or pedal edema. NEUROLOGICAL: Gross neurological examination did not reveal any focal deficits. SKIN: No rashes. -Chronic persistent asthma with acute exacerbation -essential hypertension -Hypothyroidism -Right renal cyst need to be followed as an outpatient Plan - Discharge Summary New Discharge Prescriptions: New predniSONE 10 mg PO DAILY #30 tab Budesonide-Formot 160-4.5 Mcg [Symbicort 160-4.5 Mcg Inhaler] 2 puff INHALATION BID #1 inhaler Continue amLODIPine [Norvasc] 5 mg PO HS Aspirin EC [Ecotrin Low Dose] 81 mg PO DAILY Albuterol Inhaler [Ventolin Hfa Inhaler] 1 - 2 puff INHALATION RT-Q6H PRN PRN Reason: Shortness Of Breath Montelukast [Singulair] 10 mg PO HS Levothyroxine Sodium [Synthroid] 37.5 mcg PO RICHEY Levothyroxine Sodium [Synthroid] 25 mcg PO MOTUWETHFRSA Discharge Medication List Albuterol Inhaler [Ventolin Hfa Inhaler] 1 - 2 puff INHALATION RT-Q6H PRN [History] Aspirin EC [Ecotrin Low Dose] 81 mg PO DAILY 03/25/18 [History] Levothyroxine Sodium [Synthroid] 25 mcg PO MOTUWETHFRSA 03/25/18 [History] Levothyroxine Sodium [Synthroid] 37.5 mcg PO RICHEY 03/25/18 [History] Montelukast [Singulair] 10 mg PO HS 03/25/18 [History] amLODIPine [Norvasc] 5 mg PO HS 03/25/18 [History] Budesonide-Formot 160-4.5 Mcg [Symbicort 160-4.5 Mcg Inhaler] 2 puff INHALATION BID #1 inhaler 03/27/18 [Rx] predniSONE 10 mg PO DAILY #30 tab 03/27/18 [Rx] Follow up Appointment(s)/Referral(s): Germaine Ortega MD [STAFF PHYSICIAN] - 1 Week Bandar Trimble DO [REFERRING] - 1 Week Kwabena Pedraza DO [Primary Care Provider] - 1 Week Patient Instructions/Handouts: Asthma (DC) Activity/Diet/Wound Care/Special Instructions: Regular diet. Activity as tolerated. Discharge Disposition: HOME SELF-CARE
[2018-03-27 14:57] LABS: T4, Free (Free Thyroxine) 1.68 ng/dL (0.78-2.19)
[2018-03-28] MEDS ORDERED: LEVOTHYROXINE 25 MCG TAB PO SCH (06:30)
[2018-04-04] MEDS ORDERED: metroNIDAZOLE-NS PMX 500 MG in SALINE 1 100ML.BAG IVPB SCH
== END 2018-03-27 15:27 | disposition home or self-care (01) ==
LOC: EC 11:18 → 4MS4W 15:17 → INTOOBSV 15:17
PROVIDERS: ADMIT Internal Medicine; ATTEND Internal Medicine
DX: J45.51 Severe persistent asthma with (acute) exacerbation (principal); I10 Essential (primary) hypertension; R79.89 Other specified abnormal findings of blood chemistry; E03.9 Hypothyroidism, unspecified; I45.10 Unspecified right bundle-branch block; N28.1 Cyst of kidney, acquired; R01.1 Cardiac murmur, unspecified; Z79.82 Long term (current) use of aspirin; Z79.890 Hormone replacement therapy; Z79.899 Other long term (current) drug therapy; Z88.1 Allergy status to other antibiotic agents; Z91.048 Other nonmedicinal substance allergy status; Z90.79 Acquired absence of other genital organ(s); Z90.721 Acquired absence of ovaries, unilateral
CPT/HCPCS: 96376 ×3; 96372 ×3; 96375; 96361; 96374; 99285; 36415; 94640 ×6; 93005; 97161; 85379; 84439; 83880; 80053; 80048; 84443; 82550; 82553; 83735; 84484; 85025 ×2; 85610; 85730; 87040; 87502; 83036; 71046; 71275; G0378 ×3; J1644 ×3; J2930 ×3; Q9967